=== PATIENT | male | born 1990 | race African-American/Black ===

== ENCOUNTER 2019-04-28 07:02 | Inpatient (IN) | payer MEDICAID ==
[~2019-04-28] VITALS: Ht 177.8 cm; Wt 64.0 kg
[2019-04-28] MEDS ORDERED: HALOPERIDOL 5 MG TABLET PO ONE (09:30)
[2019-04-28 10:50] LABS: BASOPHILS % (AUTO) 0.7 % (0.0-2.0); EOSINOPHILS % (AUTO) 5.3 % (1.0-6.0); HEMATOCRIT 44.3 % (41-53); LYMPHOCYTES # (AUTO) 1.5 K/uL (1.0-4.8); LYMPHOCYTES % (AUTO) 17.9 % (22.0-44.0); MEAN CORPUSCULAR HEMOGLOBIN 33.5 pg (26.0-34.0); MEAN CORPUSCULAR HGB CONC 33.8 G/dL (31.0-37.0); MEAN CORPUSCULAR VOLUME 99 fL (80-100); MONOCYTES # (AUTO) 0.6 K/uL (0.1-1.0); MONOCYTES % (AUTO) 6.7 % (2.0-9.0); NEUTROPHILS # (AUTO) 5.8 K/uL (1.8-7.7); NEUTROPHILS % (AUTO) 69.4 % (40.0-70.0); PLATELET COUNT (AUTO) 214 K/uL (150-450); RED BLOOD CELL COUNT(AUTO) 4.47 MIL/uL (4.50-5.90); RED CELL DISTRIBUTION WIDTH 13.4 % (11.5-14.5)
[2019-04-28 11:00] LABS: ANION GAP 5 mmol/L (8-16); CALCIUM, TOTAL 9.1 mg/dL (8.8-10.5); CARBON DIOXIDE 30 mmol/L (22-29); CHLORIDE 104 mmol/L (98-107); CREATININE 0.92 mg/dL (0.60-1.30); GLOMERULAR FILTR. RATE CALC > 60 mL/min (>60); GLUCOSE,RANDOM 96 mg/dL (70-110); POTASSIUM 3.7 mmol/L (3.5-5.1); SODIUM SERUM 139 mmol/L (136-145); UREA NITROGEN, BLOOD 13 mg/dL (7-18)
[2019-04-28 11:08] LABS: ALANINE AMINOTRANSFERASE 12 U/L (12-78); ALBUMIN 3.9 g/dL (3.4-5.0); ALKALINE PHOSPHATASE 63 U/L (46-116); ASPARTATE AMINOTRANSFERASE 19 U/L (15-37); BILIRUBIN,TOTAL 0.6 mg/dL (0.1-1.0); TOTAL PROTEIN, SERUM 7.1 g/dL (6.4-8.2)
[2019-04-28] MEDS ORDERED: ZOLPIDEM TARTRATE 10 MG TABLET PO PRN (12:30)
[2019-04-28] MEDS ORDERED: LORazepam 2 MG TABLET PO PRN (12:30)
[2019-04-28] MEDS ORDERED: HALOPERIDOL 5 MG TABLET PO PRN (12:30)
[2019-04-28 14:05] VITALS: BP 151/85
[2019-04-28] MEDS ORDERED: INFLUENZA VIRUS VACCINE QVS 2019-20 (3YR+)/PF 60 MCG/0.5 ML SYRINGE IM ONE (14:30)
[2019-04-28] MEDS ORDERED: GuaiFENesin/D-METHORPHAN [SUGAR-FREE] 200-20MG/10 ML SYRUP UDCUP PO PRN (20:30)
[2019-04-28] MEDS ORDERED: IBUPROFEN 400 MG TABLET PO PRN (20:30)
[2019-04-28] MEDS ORDERED: ALBUTEROL SULFATE HFA 90 MCG/PUFF 8 GM INHALER IH PRN (20:30)
[2019-04-28] MEDS ORDERED: CloNIDine HCL 0.1 MG TABLET PO PRN (20:30)
[2019-04-28] MEDS ORDERED: ONDANSETRON HCL 4 MG TABLET PO PRN (20:30)
[2019-04-28] MEDS ORDERED: MAGNESIUM HYDROXIDE SUSPENSION 30 ML UDCUP PO PRN (20:30)
[2019-04-28] MEDS ORDERED: NICOTINE 14 MG/24 HOUR PATCH TD PRN (20:30)
[2019-04-28] MEDS ORDERED: PETROLATUM,WHITE 28 GM JELLY TP PRN (20:30)
[2019-04-28] MEDS ORDERED: MAG HYDROX/AL HYDROX/SIMETH ES 30 ML SUSPENSION UDCUP PO PRN (20:30)
[2019-04-28] MEDS ORDERED: LOPERAMIDE HCL 2 MG CAPSULE PO PRN (20:30)
[2019-04-28] MEDS ORDERED: DOCUSATE SODIUM 100 MG CAPSULE PO PRN (20:30)
[2019-04-28] MEDS ORDERED: ACETAMINOPHEN 325 MG TABLET PO PRN (20:30)
[2019-04-29 09:40] VITALS: BP 151/90
[2019-04-29 14:35] LABS: AMPHET/METH SCREEN,URINE NEGATIVE (NEGATIVE); BARBITURATE SCREEN, URINE NEGATIVE (NEGATIVE); BENZODIAZEPINES SCREEN,URINE NEGATIVE (NEGATIVE); CANNABINOID SCREEN,URINE POSITIVE (NEGATIVE); COCAINE SCREEN,URINE NEGATIVE (NEGATIVE); METHADONE SCREEN, URINE NEGATIVE (NEGATIVE); OPIATE SCREEN,URINE NEGATIVE (NEGATIVE); PHENCYCLIDINE SCREEN,URINE NEGATIVE (NEGATIVE)
[2019-04-29] MEDS: OLANZapine 10 MG TABLET PO SCH ×2 (16:38→17:51)
[2019-04-30] MEDS: OLANZapine 10 MG TABLET PO SCH ×2 (08:26→17:29)
[2019-04-30] MEDS: AmLODIPine BESYLATE 5 MG TABLET PO SCH (08:26)
[2019-04-30 08:34] VITALS: BP 122/60
[2019-04-30 16:05] VITALS: BP 143/87
[2019-05-01 08:23] VITALS: BP 144/102
[2019-05-01] MEDS: OLANZapine 10 MG TABLET PO SCH (09:29)
[2019-05-01] MEDS: AmLODIPine BESYLATE 5 MG TABLET PO SCH (09:29)
[2019-05-01] MEDS ORDERED: AMLO5TAB9 PO (14:31)
[2019-05-01] MEDS ORDERED: OLAN10TA3 PO (14:31)
== END 2019-05-01 15:00 | disposition home or self-care (01) | DRG 750 ==
LOC: EMS 07:02 → 3EC 14:17
PROVIDERS: ADMIT Psychiatry & Neurology Psychiatry; ATTEND Psychiatry & Neurology Psychiatry
DX: F25.9 Schizoaffective disorder, unspecified (principal); Z59.0 Homelessness; F17.210 Nicotine dependence, cigarettes, uncomplicated; I10 Essential (primary) hypertension; L30.9 Dermatitis, unspecified; F19.10 Other psychoactive substance abuse, uncomplicated; S62.102A Fracture of unspecified carpal bone, left wrist, initial encounter for closed fracture; X58.XXXA Exposure to other specified factors, initial encounter; Y93.89 Activity, other specified; Y92.89 Other specified places as the place of occurrence of the external cause; Y99.8 Other external cause status
CPT/HCPCS: 80307; G0480

== ENCOUNTER 2019-07-12 09:54 | Emergency (ER) | payer MEDICAID ==
[~2019-07-12] VITALS: Ht 182.9 cm; Wt 68.2 kg
[~2019-07-12 09:54] MED LIST: AMLO5TAB9 PO; OLAN10TA3 PO
[2019-07-12 11:40] VITALS: BP 132/88
== END 2019-07-12 12:06 | disposition home or self-care (01) ==
LOC: EMS 09:56
DX: H00.015 Hordeolum externum left lower eyelid (principal); F17.210 Nicotine dependence, cigarettes, uncomplicated; Z79.899 Other long term (current) drug therapy; Z98.890 Other specified postprocedural states

== ENCOUNTER 2019-09-18 08:07 | Emergency (ER) | payer MEDICAID ==
[~2019-09-18] VITALS: Ht 182.9 cm; Wt 68.2 kg
[2019-09-18 08:12] VITALS: BP 154/70
[2019-09-18] MEDS ORDERED: PERTUSS(ACELL),DIPH,TET VAC/PF 0.5 ML VIAL IM ONE (10:00)
== END 2019-09-18 10:25 | disposition home or self-care (01) ==
LOC: EMS 08:10
DX: S60.141A Contusion of right ring finger with damage to nail, initial encounter (principal); S60.221A Contusion of right hand, initial encounter; S60.151A Contusion of right little finger with damage to nail, initial encounter; F17.210 Nicotine dependence, cigarettes, uncomplicated; Z98.890 Other specified postprocedural states; Z79.899 Other long term (current) drug therapy; W22.01XA Walked into wall, initial encounter; Y93.89 Activity, other specified; Y92.89 Other specified places as the place of occurrence of the external cause; Y99.8 Other external cause status
CPT/HCPCS: 90471; 90715

== ENCOUNTER 2019-10-12 12:10 | Emergency (ER) | payer MEDICAID ==
[~2019-10-12] VITALS: Ht 182.9 cm; Wt 72.7 kg
[2019-10-12 12:24] VITALS: BP 130/67
[2019-10-12] MEDS ORDERED: SODIUM CHLORIDE 0.9% 1,000 ML IV ONE (12:30)
[2019-10-12] MEDS ORDERED: ONDANSETRON HCL 4 MG/2 ML VIAL IVP ONE (12:30)
== END 2019-10-12 14:33 | disposition left against medical advice (07) ==
LOC: EMS 12:12
DX: F10.129 Alcohol abuse with intoxication, unspecified (principal); R11.10 Vomiting, unspecified; R41.0 Disorientation, unspecified; F17.210 Nicotine dependence, cigarettes, uncomplicated
CPT/HCPCS: 93005; J2405; J7030